=== PATIENT | female | born 1940 | race Caucasian/White ===

== ENCOUNTER 2017-06-10 22:04 | Emergency (ER) | payer MEDICARE ==
--- NOTE | 2017-06-11 00:09 | RADIOLOGY REPORT (SQ) ---
EXAM DESCRIPTION: KNEE BILATERAL 1-2 VIEWS COMPLETED DATE/TIME: 06/10/2017 11:57 pm REASON FOR STUDY: fall injury COMPARISON: None. NUMBER OF VIEWS: 4 TECHNIQUE: AP and lateral radiographic images acquired of the right and left knee. LIMITATIONS: None. FINDINGS: MINERALIZATION: Normal. BONES: Left patellar body nondisplaced fracture. No other fracture in the right or left knee. No di slocation. No worrisome bone lesions. JOINT: No effusion. SOFT TISSUES: Left anterior soft tissue swelling and moderate joint effusion. No radio-opaque foreig n body. OTHER: No other significant finding. IMPRESSION: Left patellar body nondisplaced fracture. No other fracture in the right or left knee. TECHNICAL DOCUMENTATION: JOB ID: [id number] [employer]- All Rights Reserved
--- NOTE | 2017-06-11 00:34 | ER Document Report ---
HPI - HPI Patient complains to provider of: knee pain Pain Level: 5 Context: Patient is a 76-year-old female comes emergency department for chief complaint of knee pain, she states she tripped just prior to arrival and landed on both of her knees, she reports significantly worse pain in her left knee area. She denies hip pain, back pain, head injury. Son is at bedside. Past Medical History - General Information source: Patient, Relative - Social History Smoking Status: Never Smoker Frequency of alcohol use: None Drug Abuse: None Lives with: Family Family History: Reviewed & Not Pertinent - Medical History Medical History: Negative Renal/ Medical History: Denies: Hx Peritoneal Dialysis Past Surgical History: Reports: Hx Orthopedic Surgery - Immunizations Immunizations up to date: Yes Hx Diphtheria, Pertussis, Tetanus Vaccination: Yes Vertical Provider Document - CONSTITUTIONAL General Appearance: WD/WN, No Apparent Distress - HEENT HEENT: Atraumatic, Normocephalic - RESPIRATORY Respiratory: Breath Sounds Normal, No Respiratory Distress O2 Sat by Pulse Oximetry: 98 - CARDIOVASCULAR Cardiovascular: Regular Rate, Regular Rhythm - GI/ABDOMEN Gastrointestinal: Abdomen Soft, Abdomen Non-Tender - BACK Back: Normal Inspection - MUSCULOSKELETAL/EXTREMETIES Musculoskeletal/Extremeties: Tender - Patient with ecchymosis over both knees, has slightly worse swelling over the left knee anteriorly, normal lower extremity exam otherwise including normal hip, ankle, normal distal neurovascular exam - NEURO Level of Consciousness: Awake, Alert, Appropriate Course - Re-evaluation Re-evalutation: Nondisplaced fracture of the left patella, patient with extensor mechanism intact. Patient placed in the immobilizer. She is able to walk with crutches. She is going home with her son. Provided with copy of her reports, referred locally because she might not go home before orthopedic evaluation. Discussed follow-up and return precautions. Patient states understanding and agreement. - Vital Signs Vital signs: Temp Pulse Resp BP Pulse Ox 97.9 F 64 20 125/65 98 06/10/17 22:22 06/10/17 22:22 06/10/17 22:22 06/10/17 22:22 06/10/17 22:22 Procedures - Immobilization Left knee Immobilizer type: Knee immobilizer Performed by: ANIBAL Post-Proc Neuro Vasc Exam: Normal Alignment checked and good: Yes Discharge - Discharge Clinical Impression: Knee pain Qualifiers: Chronicity: acute Laterality: bilateral Qualified Code(s): M25.561 - Pain in right knee Left patella fracture Qualifiers: Encounter type: initial encounter Fracture type: closed Fracture morphology: unspecified fracture morphology Fracture alignment: nondisplaced Qualified Code( s): S82.002A - Unspecified fracture of left patella, initial encounter for closed fracture Disposition: HOME, SELF-CARE Additional Instructions: There is a nondisplaced fracture in the left patella (kneecap). Wear the knee immobilizer, follow-up closely with orthopedics on referral for additional management, take the pain medication if needed (call tomorrow to set up appointment). If you do take the pain medication also take the prescribed stool softener to avoid constipation. Return to the emergency department for any concerning symptoms. Prescriptions: Morphine Sulfate [Morphine Ir 15 Mg Tablet] 15 mg PO Q4HP PRN #12 tablet PRN Reason: Docusate Sodium [Colace 100 mg Capsule] 100 mg PO DAILY #30 capsule Referrals: MIHIR CANTU MD [ACTIVE STAFF] - Follow up tomorrow
[2017-06-11] MEDS ORDERED: OXYCODONE-ACETAMINOPHEN 5-325 MG TABLET PO ONE (00:53)
[2017-06-11 01:46] VITALS: BP 132/60
== END 2017-06-11 01:47 | disposition home or self-care (01) ==
LOC: ER 22:04
DX: S82.002A Unspecified fracture of left patella, initial encounter for closed fracture (principal); M25.561 Pain in right knee; M25.562 Pain in left knee; W01.0XXA Fall on same level from slipping, tripping and stumbling without subsequent striking against object, initial encounter
CPT/HCPCS: 99283; 73560; L1830; A9270